=== PATIENT | male | born 1940 | race Caucasian/White ===

== ENCOUNTER → 2017-02-13 | Outpatient (CLI) | payer OTHER ==
[~2017-02-13] MED LIST: AZIT250T74; HYDR-2768; LEVA0.3113; MUCI600T; NIAS10004; OMEP20CA5
--- NOTE | 2017-02-13 14:33 | RADRPT ---
EXAM DATE/TIME: 02/13/2017 13:49 [place] COMPARISON: No previous studies available for comparison. INDICATIONS : Pain. Lower back pain. MEDICAL HISTORY : None. SURGICAL HISTORY : Pacemaker. Left knee replacement. ENCOUNTER: Initial ACUITY: 1 week PAIN SCORE: 6/10 LOCATION: Lower back. TECHNIQUE: Multiplanar multisequence MRI of the lumbar spine was performed without contrast. FINDINGS: Alignment: A mild levoscoliotic curvature is noted. There is slight anterolisthesis of L4 and L5. Lumbar AP line is otherwise well maintained. Osseous structures and facet joints: Reactive edema and hyperemia are seen along the endplates along the L2-3 disc space especially on the right side. Vertebral body height is otherwise well-maintained. There are no other focal signal alterations withi n the vertebral bodies. Advanced hypertrophic facet arthropathy is seen bilaterally. The most advanced changes are identified on the right at L2-3 and on the left at L4-5. Intervertebral disc spaces: Degenerative disc disease ranging from mild to severe are noted. L1-2: Unremarkable. L2-3: Severe degenerative disc disease with asymmetric disc space narrowing. There is complete collap se of the disc along the right side. Right posterolateral disc osteophyte complex and disc protrusion are noted. There is significant right-sided foraminal compromise. Protruding disc abuts and slightly effaces the right L2 nerve root. L3-4: Unremarkable. L4-5: Moderate to severe degenerative disc disease. There is significant disc space narrowing along t he left-sided disc. There is significant disc osteophyte complex and disc protrusion along the left l ateral posterior lateral disc margin. This in conjunction with hypertrophic facet arthropathy is caus ing severe left foraminal stenosis. Minimal anterior dural effacement is identified. There is no sign ificant spinal stenosis. L5-S1: Moderate degenerative disc disease with asymmetric disc space narrowing worse on the left side the disc. There is left posterolateral disc osteophyte complex without significant mass effect. Ther e is no significant spinal stenosis. Neurologic structures: Significant foraminal encroachment with potential nerve root compression is identified on the right a t L2-3 and on the left at L4-5. There is no significant spinal stenosis. CONCLUSION: Moderate to severe degenerative disc disease at L2-3 and L4-5 with asymmetric disc sp natasha narrowing and marginal disc osteophyte complex. There is significant foraminal encroachment on th e right at L2-3 and on the left at L4-5. No evidence of significant epidural disc herniation or central spinal stenosis. Advanced facet arthropathy on the right at L2-3 and the left at L4-5. Eliseo Moncada MD on February 13, 2017 at 14:23 Board Certified Radiologist. This report was verified electronically.
== END ==
LOC: HRAD 13:05
DX: M54.16 Radiculopathy, lumbar region (principal); M48.06 Spinal stenosis, lumbar region; M43.16 Spondylolisthesis, lumbar region
CPT/HCPCS: 72148